=== PATIENT | female | born 1980 | race Caucasian/White ===

== ENCOUNTER 2016-06-16 11:11 | Emergency (ER) | payer BC ==
[2016-06-16 13:02] VITALS: BP 111/73
--- NOTE | 2016-06-16 13:14 | UC ---
Respiratory Complaint HPI - History of Current Complaint Chief Complaint: UCRespiratory Stated Complaint: COUGH,CONGESTION Time Seen by Provider: 06/16/16 13:09 Hx Obtained From: Patient Hx Last Menstrual Period: 06/07/16 ?: No Onset/Duration: Sudden Onset, Lasting Weeks - 1, Worse Since - 2 days increased coughing. Severity Initially: Mild Severity Currently: Moderate Character: Cough: Productive Associated Signs And Symptoms: Positive: Fever, Chills, Wheezing - gotten better., URI, Nasal Congestion, Hoarseness, Sinus Discomfort - but is getting better. Related History: Seasonal Allergies - Risk Factors Pulmonary Embolism Risk Factors: Negative Cardiac Risk Factors: Family History Pseudomonas Risk Factors: Negative Tuberculosis Risk Factors: Negative - Allergies/Home Medications Allergies/Adverse Reactions: Allergies Allergy/AdvReac Type Severity Reaction Status Date / Time No Known Allergies Allergy Verified 06/16/16 12:57 Home Medications: Home Medications Ibuprofen [Advil] 400 mg PO Q4H PRN 06/16/16 [History Confirmed 06/16/16] [id number] [Nyquil Severe Cold/Flu 5-6.25-10-325 mg/15Ml] 1 liq PO Q4H PRN 06/16/16 [History Confirmed 06/16/16] PMH/Surg Hx/FS Hx/Imm Hx Endocrine History Of: Denies: Diabetes Cardiovascular History Of: Denies: Hypertension Respiratory History Of: Denies: Asthma - Surgical History Surgical History: Yes Surgery Procedure, Year, and Place: appy. unclogging fallopian tube. - Family History Known Family History: Positive: Cardiac Disease, Hypertension - Social History Occupation: Employed Full-time Lives: With Family Alcohol Use: None Substance Use Type: None Smoking Status (MU): Never Smoked Tobacco Have You Smoked in the Last Year: No Review of Systems Constitutional: Fever, Chills ENT: Nasal Discharge Respiratory: Cough All Other Systems Reviewed And Are Negative: Yes Physical Exam Triage Information Reviewed: Yes Appearance: No Pain Distress, Ill-Appearing, Obese Vital Signs: Initial Vital Signs Temp 98.1 F 06/16/16 12:59 Pulse 87 06/16/16 12:59 Resp 16 06/16/16 12:59 BP 111/73 06/16/16 12:59 Pulse Ox 100 06/16/16 12:59 Vital Signs Reviewed: Yes Eyes: Positive: Conjunctiva Clear ENT: Positive: Pharynx normal, Nasal congestion, TMs normal Neck exam: Normal Respiratory: Positive: Lungs clear, Wheezing - expiratory with coughing. Cardiovascular Exam: Normal Musculoskeletal Exam: Normal Neurological Exam: Normal Psychological Exam: Normal Skin Exam: Normal UC Diagnostic Evaluation - Laboratory O2 Sat by Pulse Oximetry: 100 Respiratory Course/Dx - Differential Dx/Diagnosis Differential Diagnosis/HQI/PQRI: Asthma, Lower Resp Infection, Sinusitis Provider Diagnoses: Acute URI. Acute Bronchospasm Discharge - Discharge Plan Condition: Stable Disposition: HOME Prescriptions: predniSONE TAB* [Deltasone TAB*] 20 mg PO DAILY #18 tab Patient Education Materials: Upper Respiratory Infection (ED), Bronchospasm (ED ), Prednisone (By mouth) Additional Instructions: NASAL SPRAYS AND DROPS: Afrin in the PUMP/ MIST bottle. Tilt your head down and look at the floor while doing a strong sniff with the spray. Decongestant nasal sprays and drops often give dramatic relief from congestion. They are often recommended for patients with sinus infection to assist with sinus drainage. Persons with high blood pressure should consult the doctor before using these nasal sprays. Afrin and Ignacio-Synephrine are common hdak-cvw-[id number] preparations. They should not be used for more than five days, as "rebound" congestion can occur - - the congestion flares as the drug wears off. A way of dealing with this rebound congestion problem is to medicate only one nostril each time, allowing the other nostril to recover from the medicine' s effects. When you no longer need the drug during the day, spray only one nostril each night. This helps you sleep well without severe rebound congestion. Call the doctor if you develop severe headache, palpitations, or chest pain.
== END 2016-06-16 13:55 | disposition home or self-care (01) ==
LOC: UCCORT 11:11
DX: J06.9 Acute upper respiratory infection, unspecified (principal); J98.01 Acute bronchospasm
CPT/HCPCS: 99212; G0463

== ENCOUNTER 2017-06-16 14:58 | Emergency (ER) | payer BC ==
[2017-06-16 18:02] VITALS: BP 102/65
--- NOTE | 2017-06-16 18:14 | UC ---
Respiratory Complaint HPI - HPI Summary HPI Summary: 36 yo female with a 2 day hx of f/c, myalgias and runny nose dry cough - History of Current Complaint Chief Complaint: UCGeneralIllness Stated Complaint: FEVER,CHEST COLD Time Seen by Provider: 06/16/17 18:00 Hx Obtained From: Patient Hx Last Menstrual Period: 06/08/17 Onset/Duration: Gradual Onset, Lasting Days Timing: Constant Severity Initially: Moderate Pain Intensity: 4 Pain Scale Used: 0-10 Numeric Character: Cough: Nonproductive Aggravating Factors: Nothing Alleviating Factors: Nothing Associated Signs And Symptoms: Positive: Fever, Chills, Nasal Congestion, Sinus Discomfort - Allergies/Home Medications Allergies/Adverse Reactions: Allergies Allergy/AdvReac Type Severity Reaction Status Date / Time No Known Allergies Allergy Verified 06/16/17 17:56 PMH/Surg Hx/FS Hx/Imm Hx Previously Healthy: Yes - Surgical History Surgical History: Yes Surgery Procedure, Year, and Place: appy. unclogging fallopian tube. - Family History Known Family History: Positive: Cardiac Disease, Hypertension, Other - dyslipidemia - Social History Alcohol Use: None Substance Use Type: None Smoking Status (MU): Never Smoked Tobacco Have You Smoked in the Last Year: No Review of Systems Constitutional: Fever, Chills, Fatigue Skin: Negative Eyes: Negative ENT: Nasal Discharge Respiratory: Cough Cardiovascular: Negative Gastrointestinal: Negative Genitourinary: Negative Motor: Negative Neurovascular: Negative Musculoskeletal: Myalgia Neurological: Negative Psychological: Negative Is Patient Immunocompromised?: No All Other Systems Reviewed And Are Negative: Yes Physical Exam Triage Information Reviewed: Yes Appearance: Well-Appearing, No Pain Distress, Well-Nourished Vital Signs: Initial Vital Signs Temp 99.3 F 06/16/17 17:56 Pulse 101 06/16/17 17:56 Resp 18 06/16/17 17:56 BP 102/65 06/16/17 17:56 Pulse Ox 98 06/16/17 17:56 Vital Signs Reviewed: Yes Eyes: Positive: Conjunctiva Clear ENT: Positive: Hearing grossly normal, TMs normal, Uvula midline. Negative: Nasal congestion, Nasal drainage, TM bulging, TM dull, TM red, Tonsillar swelling, Tonsillar exudate, Trismus, Muffled voice, Hoarse voice, Dental tenderness, Sinus tenderness Dental Exam: Normal Neck: Positive: Supple, Nontender, No Lymphadenopathy Respiratory: Positive: Lungs clear, Normal breath sounds, No respiratory distress Cardiovascular: Positive: RRR, No Murmur Musculoskeletal: Positive: ROM Intact, No Edema Neurological: Positive: Alert Psychological Exam: Normal Skin Exam: Normal UC Diagnostic Evaluation - Laboratory Pertinent Lab Values Are: WNL Except: - influenza A O2 Sat by Pulse Oximetry: 98 - normal/not hypoxic Respiratory Course/Dx - Differential Dx/Diagnosis Provider Diagnoses: influenza Discharge - Discharge Plan Condition: Stable Disposition: HOME Prescriptions: Oseltamivir CAP* [Tamiflu CAP*] 75 mg PO BID #9 cap Patient Education Materials: Influenza (ED) Forms: *Work Release Referrals: Nora Soriano MD [Primary Care Provider] - Additional Instructions: rest fluids tylenol or advil
[2017-06-16] MEDS ORDERED: Oseltamivir CAP* 75 MG CAP PO ONE (18:41)
== END 2017-06-16 18:55 | disposition home or self-care (01) ==
LOC: UCCORT 14:58
DX: J10.1 Influenza due to other identified influenza virus with other respiratory manifestations (principal)
CPT/HCPCS: 87502; 99212; A9270-GY; G0463